=== PATIENT | male | born 2005 | race African-American/Black ===

== ENCOUNTER 2024-11-08 10:42 | Emergency (ER) | payer MEDICAID, SELFPAY ==
[2024-11-08 10:59] VITALS: BP 134/90; PULSE 76; RESP 19; TEMP 36.9; O2SAT 98; BMI 28.3
--- NOTE | 2024-11-08 11:05 | XR_ITS ---
Examination: Foot, left, 3 views Technique: AP, oblique, lateral views foot, 3 views Date and time of exam: October 31, 2024 1112 hours INDICATIONS: Twisting injury to the foot today, foot pain. FINDINGS: No acute fracture. No dislocation No foreign body IMPRESSION: No acute fracture
--- NOTE | 2024-11-08 11:05 | XR_ITS ---
EXAMINATION: Ankle, left 3 views . Technique: Ankle AP, oblique, lateral 3 views Date and time of exam: November 08, 2024 1112 hours INDICATIONS: Twisting injury to the ankle today, ankle pain. FINDINGS: Lateral malleolar soft tissue swelling No acute ankle fracture No dislocation IMPRESSION: No acute fracture
--- NOTE | 2024-11-08 11:06 | EDNOTE_ITS ---
<Statement entered by Arminda Canchola MD - 11/08/24 17:12> As co-signing physician, I was present and available for consult prn. I concur with the plan and care as documented by the midlevel provider. Lower Extremity Injury RME/HPI General Chief Complaint: Ankle/Foot Injury Stated Complaint: Left Ankle injury Time Seen by Provider: 11/08/24 11:00 Source: patient Arrival date/time: 11/08/24 10:42 19-year-old male with no known medical history presents to the emergency room with a chief complaint of tenderness and pain to his left ankle after a ground- level fall that occurred today at 1 AM Mode of arrival: ambulatory Limitations: no limitations Related Data Allergies Allergy/AdvReac Type Severity Reaction Status Date / Time No Known Allergies Allergy Mild Uncoded 08/23/07 20:54 Review of Systems Review of Systems Systems Reviewed: All systems reviewed, normal except as documented Constitutional Constitutional: Reports system reviewed and no additional complaints, except as documented, Denies fatigue, Denies fever(s), Denies headache(s) and Denies weakness Eyes Eyes: Reports system reviewed and no additional complaints, except as documented, Denies blurry vision and Denies change in vision ENT Ears, Nose, Mouth, and Throat: Reports system reviewed and no additional complaints, except as documented, Denies otalgia, Denies headache(s), Denies nasal congestion, Denies throat swelling and Denies vertigo Cardiovascular Cardiovascular: Reports system reviewed and no additional complaints, except as documented, Denies chest pain, Denies dyspnea and Denies dyspnea on exertion Respiratory Respiratory: Reports system reviewed and no additional complaints, except as documented, Denies chest congestion, Denies cough, Denies dyspnea, Denies dyspnea on exertion and Denies wheezing Gastrointestinal Gastrointestinal: Reports system reviewed and no additional complaints, except as documented, Denies abdominal pain, Denies cramping, Denies nausea and Denies vomiting Genitourinary Genitourinary: Reports system reviewed and no additional complaints, except as documented, Denies dysuria and Denies hematuria Musculoskeletal Musculoskeletal: Reports system reviewed and no additional complaints, except as documented, Reports abnormal gait, Reports arthralgias, Denies back pain, Reports joint swelling and Reports limited range of motion Integumentary/Breasts Skin/Breast: Reports system reviewed and no additional complaints, except as documented and Denies wounds Neurologic Neurologic: Reports system reviewed and no additional complaints, except as documented, Reports abnormal gait, Denies confusion, Denies headache(s), Denies lack of coordination, Denies vertigo and Denies weakness Psychiatric Psychiatric: Reports system reviewed and no additional complaints, except as documented, Denies anxiety, Denies confusion, Denies depression, Denies paranoia, Denies suicidal ideation and Denies tactile hallucinations Endocrine Endocrine: Reports system reviewed and no additional complaints, except as documented and Denies fatigue Hematologic/Lymphatic Hematologic/Lymphatic: Reports system reviewed and no additional complaints, except as documented and Denies lymphadenopathy Allergic/Immunologic Allergic/Immunologic: Reports system reviewed and no additional complaints, except as documented, Denies throat swelling, Denies urticaria and Denies wheezing Past Medical History Social History SMOKING STATUS: Former smoker ED Exam General Limitations: Present no limitations General appearance: Present alert and in no apparent distress Head Head exam: Present atraumatic Eye Eye exam: Present normal appearance, PERRL and EOMI ENT ENT exam: Present normal exam, normal oropharynx and mucous membranes moist Neck Neck exam: Present normal inspection, full ROM and trachea midline Chest Chest inspection: Present normal inspection and symmetric chest wall rise Respiratory Respiratory exam: Present normal lung sounds bilaterally Cardiovascular Cardiovascular exam: Present regular rate, normal rhythm and normal heart sounds Abdominal Exam Abdominal exam: Present soft and normal bowel sounds Extremities Exam Extremities exam: Present normal inspection and full ROM Expanded Lower Extremity Exam Hip/Pelvis exam: Present normal inspection Upper leg exam: Present normal inspection Knee exam: Present normal inspection Lower leg exam: Present normal inspection Ankle exam: Present tenderness and swelling; Absent full ROM Foot/toe exam: Present tenderness and swelling; Absent full ROM Gait: observed and limited by pain Back Exam Back exam: Present normal inspection and full ROM Neurological Exam Neurological exam: Present alert, oriented X3 and CN II-XII intact Psychiatric Psychiatric exam: Present normal affect and normal mood Skin Skin exam: Present warm, dry, intact and normal color Course Quality Measures none Orders Category Date Time Status lul wrap [Splint / Immobilizer] STAT Care 11/08/24 11:05 Active XR ankle comp LT min 3V Stat Exams 11/08/24 11:05 Completed XR foot comp LT min 3V Stat Exams 11/08/24 11:05 Completed Vital Signs Vital signs: Vital Signs Temperature 98.5 F 11/08/24 10:59 Pulse Rate 76 11/08/24 10:59 Respiratory Rate 19 11/08/24 10:59 Blood Pressure 134/90 H 11/08/24 10:59 Pulse Oximetry (%) 98 11/08/24 10:59 Oxygen Delivery Method Room Air 11/08/24 10:59 Extremity Injury, Lower MDM Narrative MDM Narrative:: 19-year-old male with no known medical history presents to the emergency room with a chief complaint of tenderness and pain to his left ankle after a ground- level fall that occurred today at 1 AM Patient is hemodynamically stable and in no apparent distress Physical examination shows tenderness and pain to the patient's left ankle. The patient has swelling and tenderness to the foot as well. The patient has very limited range of motion but is able to bear weight as he walked into the emergency room alone. X-ray of the ankle was completed and was negative for any acute fracture or dislocation Lul wrap was given to the patient and placed Patient was discharged and educated to follow-up with primary care provider in the next 24 to 48 hours and return to the emergency room for any evidence of worsening signs or symptoms Patient data External records reviewed:: [facility] previous records Clinical information provided by:: patient Social determinants that could affect healthcare access:: none Patient has the following chronic illnesses:: No chronic illness How is presenting disease/condition affected by chronic disease/condition?: no chronic disease Evaluation data The following diagnostics were reviewed and interpreted by me:: lab results and radiology exam(s) Lab and/or radiology exams considered but not ordered:: Labs and radiology exams considered and ordered Interpretation Summary: X-ray ankle-FINDINGS: Lateral malleolar soft tissue swelling No acute ankle fracture No dislocation IMPRESSION: No acute fracture Medications / Prescriptions Medications or Prescriptions considered but not ordered:: Medication not given Medication administrations:: Medication not given Consultations Consultation(s) initiated? (list below): No Diagnosis Extremity Injury, Lower Differential Diagnosis: ankle sprain and strain and ankle fracture Most likely diagnosis given after review of the tests above:: Ankle sprain and strain Admission Indicated Admission indicated?: not indicated Admission Request Was there a request for admission?: No Disposition Plan Disposition Plan: Discharge Discharge Attestation Discharge Attestation: The patient and all family members were given an opportunity to ask questions and understood the discharge instructions. Discharge instructions specifically effects, indications for sooner follow up or return to the emergency department, and the expected course of current diagnosis. Patient condition: Stable Discharge Plan Plan Patient Disposition: HOME (Self Care) Discharge Disposition comment: Stable Prescriptions/Referrals Referrals: Conner Quintanilla MD [Primary Care Provider] - In 1 week Problem List Clinical Impression: Ankle sprain and strain Patient/Caregiver Discharge Instructions Additional Instructions: Please follow-up with your primary care provider in the next 24 to 48 hours X-rays of your foot and your ankle were completed and were negative for any acute fracture or dislocation For any evidence of worsening signs or symptoms return to the emergency room immediately Print Language: Wallisian Stand Alone Forms: [employer] Award Info., Patient Portal Info Letter PA/POLICE OFFICER BOOKING Supervising Physician PA/POLICE OFFICER BOOKING Supervising Physician: Dr. ACNCHOLA
== END 2024-11-08 12:40 | disposition home or self-care (01) ==
PROVIDERS: Emergency Provider Emergency Medicine; PCP Pediatrics
DX: S93.402A Sprain of unspecified ligament of left ankle, initial encounter (principal); S96.912A Strain of unspecified muscle and tendon at ankle and foot level, left foot, initial encounter; W18.30XA Fall on same level, unspecified, initial encounter
CPT/HCPCS: 73610; 73630; 99283